=== PATIENT | male | born 1990 | race Caucasian/White ===

== ENCOUNTER 2016-09-07 20:57 | Emergency (ER) | payer MEDICAID ==
[~2016-09-07] VITALS: Ht 167.6 cm; Wt 59.9 kg
[2016-09-07 20:58] VITALS: BP 150/103
[2016-09-07] MEDS ORDERED: ZIPRASIDONE 20 MG INJ IM ONE ×2 (21:30→21:51)
[2016-09-07] MEDS ORDERED: DIPHENHYDRAMINE 25 MG CAPSULE PO ONE (21:30)
[2016-09-07] MEDS ORDERED: DIPHENHYDRAMINE 25 MG CAPSULE ONE (21:51)
== END 2016-09-07 22:25 | disposition left against medical advice (07) ==
LOC: ED 22:19
DX: Z76.0 Encounter for issue of repeat prescription (principal); F15.150 Other stimulant abuse with stimulant-induced psychotic disorder with delusions; Z72.9 Problem related to lifestyle, unspecified; F15.121 Other stimulant abuse with intoxication delirium
CPT/HCPCS: 99283; 99284

== ENCOUNTER 2016-11-23 12:21 | Emergency (ER) | payer MEDICAID ==
[~2016-11-23] VITALS: Ht 160 cm; Wt 55.3 kg
[2016-11-23 12:22] VITALS: BP 119/84
[2016-11-23 13:00] LABS: HEMATOCRIT 46.4 % (39.2-51.8); HEMOGLOBIN 15.5 g/dL (13.7-18.0); WHITE BLOOD COUNT 10.2 x10^3/uL (3.4-10)
[2016-11-23 13:12] LABS: BLOOD UREA NITROGEN 17 mg/dL (7-18)
[2016-11-23 13:15] LABS: ASPARTATE AMINO TRANSFERASE 18 U/L (15-37)
[2016-11-23 13:19] LABS: DAU SCREEN DISCLAIMER
== END 2016-11-23 14:48 | disposition home or self-care (01) ==
LOC: ED 12:37
DX: R10.31 Right lower quadrant pain (principal); F15.10 Other stimulant abuse, uncomplicated; F41.9 Anxiety disorder, unspecified
CPT/HCPCS: 36415; 80053; 80307; 81003; 83690; 85025; 99284

== ENCOUNTER 2016-12-19 20:28 | Observation (INO) | payer MEDICAID, OTHER ==
[~2016-12-19] VITALS: Ht 170.2 cm; Wt 65.0 kg
[2016-12-19 21:13] LABS: DAU SCREEN DISCLAIMER
[2016-12-19] MEDS ORDERED: ZIPRASIDONE 20MG CAPSULE ONE (21:13)
[2016-12-19 21:19] LABS: HEMOGLOBIN 15.2 g/dL (13.7-18.0); WHITE BLOOD COUNT 21.5 x10^3/uL (3.4-10)
[2016-12-19] MEDS ORDERED: ZIPRASIDONE 20MG CAPSULE PO SCH (21:19)
[2016-12-19 21:24] LABS: ASPARTATE AMINO TRANSFERASE 27 U/L (15-37); BLOOD UREA NITROGEN 12 mg/dL (7-18)
[2016-12-19 21:27] LABS: ACETAMINOPHEN < 2 mcg/mL (10-30)
[2016-12-20] MEDS ORDERED: LORazepam 1MG TABLET PO ONE (00:30)
[2016-12-20] MEDS ORDERED: QUETIAPINE 25MG TABLET PO PRN (01:00)
[2016-12-20] MEDS ORDERED: ZIPRASIDONE 20 MG INJ IM ONE (01:44)
[2016-12-20] MEDS ORDERED: LORazepam 1MG TABLET ONE (01:45)
[2016-12-20] MEDS ORDERED: LORazepam 2 MG/ML, 1ML ONE (01:50)
[2016-12-20 02:12] VITALS: BP 123/91
[2016-12-20] MEDS ORDERED: LORazepam 2 MG/ML, 1ML IM ONE (02:30)
[2016-12-20] MEDS ORDERED: [UNRECOGNIZED DRUG - REMARK] MC SCH (02:30)
[2016-12-20] MEDS ORDERED: NICOTINE 21 MG/24 HR PATCH.TD24 TD SCH ×4 (07:00→09:00)
[2016-12-20 08:00] VITALS: BP 100/61
[2016-12-20] MEDS ORDERED: NICOTINE 14MG/24 HR PATCH.TD24 TD SCH (09:00)
[2016-12-20] MEDS ORDERED: ZIPRASIDONE 20MG CAPSULE PO SCH (09:00)
[2016-12-20] MEDS ORDERED: HALOPERIDOL 5 MG/ML IM PRN (10:30)
[2016-12-20] MEDS ORDERED: DIPHENHYDRAMINE 50 MG/ML, 1ML IM ONE (10:30)
[2016-12-20 19:25] VITALS: BP 97/58
[2016-12-20] MEDS: ACETAMINOPHEN 325 MG TABLET PO PRN (20:36)
[2016-12-21] MEDS ORDERED: IBUPROFEN 200 MG TABLET PO ONE (01:30)
[2016-12-21 07:18] LABS: HEMATOCRIT 42.3 % (39.2-51.8); HEMOGLOBIN 14.1 g/dL (13.7-18.0); WHITE BLOOD COUNT 8.3 x10^3/uL (3.4-10)
[2016-12-21 07:19] VITALS: BP 125/69
[2016-12-21] MEDS: ACETAMINOPHEN 325 MG TABLET PO PRN (14:18)
[2016-12-21] MEDS ORDERED: LORazepam 1MG TABLET PO PRN (17:30)
[2016-12-21] MEDS ORDERED: IBUPROFEN 200 MG TABLET PO PRN (17:30)
[2016-12-21] MEDS ORDERED: QUETIAPINE 25MG TABLET PO PRN (17:30)
[2016-12-21 20:35] VITALS: BP 128/67
[2016-12-21] MEDS ORDERED: QUETIAPINE 100MG TABLET PO SCH (21:00)
== END 2016-12-21 22:10 ==
LOC: EDBD → ED 12-20 00:51 → EDIP 12-20 01:00 → MERGE 12-20 01:00 → 3E 12-20 02:09
PROVIDERS: ADMIT Hospitalist; ATTEND Family Medicine
DX: F23 Brief psychotic disorder (principal); I16.0 Hypertensive urgency; F25.9 Schizoaffective disorder, unspecified; I10 Essential (primary) hypertension; F15.10 Other stimulant abuse, uncomplicated; D72.829 Elevated white blood cell count, unspecified
CPT/HCPCS: 36415; 80053; 80307; 80329; 81003; 85025; 96372; 99285; G0378; J1200; J1630; J2060; G0479; G0480

== ENCOUNTER 2017-03-17 19:03 | Emergency (ER) | payer MEDICAID ==
[~2017-03-17] VITALS: Ht 170.2 cm; Wt 65.7 kg
[2017-03-17 19:05] VITALS: BP 126/67
[2017-03-17] MEDS ORDERED: QUET200T4 PO (20:31)
[2017-03-17] MEDS ORDERED: LITH600C PO (20:31)
[2017-03-17] MEDS ORDERED: QUETIAPINE 100MG TABLET PO ONE (21:00)
== END 2017-03-17 21:04 | disposition home or self-care (01) ==
LOC: ED 20:00
DX: Z76.0 Encounter for issue of repeat prescription (principal); F20.9 Schizophrenia, unspecified; Z91.19 Patient's noncompliance with other medical treatment and regimen
CPT/HCPCS: 99282

== ENCOUNTER 2017-06-02 22:52 | Emergency (ER) | payer MEDICAID ==
[~2017-06-02] VITALS: Ht 162.6 cm; Wt 60.1 kg
[~2017-06-02 22:52] MED LIST: LITH600C PO; QUET200T4 PO
[2017-06-02 22:55] VITALS: BP 138/86
== END 2017-06-03 00:15 | disposition home or self-care (01) ==
LOC: ED 23:59
DX: F15.10 Other stimulant abuse, uncomplicated (principal); F39 Unspecified mood [affective] disorder; F20.9 Schizophrenia, unspecified; Z91.14 Patient's other noncompliance with medication regimen; Z59.0 Homelessness
CPT/HCPCS: 99284